=== PATIENT | male | born 1955 | race Caucasian/White ===

== ENCOUNTER 2022-11-26 07:28 | Day surgery (SDC) | payer OTHER ==
[2022-11-26 07:59] LABS: Absolute Lymphocytes (CBC) 1.7 K/uL (0.7-4.9); Hematocrit 41.9 % (39.6-49.0); Lymphocytes % 24.3 % (15.3-44.8); MCV 92.3 fL (80-100); MPV 7.6 fL (7.6-11.3); Platelets 189 thou/uL (152-406); RBC Red Blood Cell Count 4.55 M/uL (4.33-5.43)
[2022-11-26] MEDS ORDERED: Ringers Lactate 1,000 ML IV ONE (08:12)
[2022-11-26 08:22] LABS: Potassium 4.2 mEq/L (3.5-5.1)
--- NOTE | 2022-11-26 08:34 | RAD REPORT ---
EXAM DESCRIPTION: RAD - Chest Pa And Lat (2 Views) - 11/26/2022 8:06 am CLINICAL HISTORY: PREOP. Hypertension COMPARISON: No comparisons TECHNIQUE: PA and lateral views of the chest were obtained. FINDINGS: The lungs are clear. Heart size is normal and central vasculature is within normal limits. No pleural effusion or pneumothorax seen. No acute bony finding noted. IMPRESSION: No acute cardiopulmonary process.
[2022-11-26] MEDS: CEFAZOLIN SODIUM 1 GM/VIAL ONE ×2 (09:01→09:35)
[2022-11-26] MEDS ORDERED: MIDAZOLAM HCL 2 MG/2 ML INJ ONE (09:06)
[2022-11-26] MEDS ORDERED: FENTANYL CITR 100 MCG/2 ML ONE ×2 (09:06→10:42)
[2022-11-26] MEDS ORDERED: propofoL 200 MG/20 ML VIAL IV ONE (09:06)
[2022-11-26] MEDS ORDERED: ROCURONIUM 50 MG/5 ML VIAL IV ONE ×2 (09:06→10:19)
[2022-11-26] MEDS ORDERED: dexAMETHasone 10 MG/ML VIAL ONE (09:06)
[2022-11-26] MEDS ORDERED: ONDANSETRON 4 MG/2 ML VIAL ONE (09:08)
[2022-11-26] MEDS ORDERED: LIDOCAINE 2% MPF 5 ML VIAL ONE (09:08)
[2022-11-26] MEDS ORDERED: KETOROLAC 30 MG/ML INJ ONE (09:08)
[2022-11-26] MEDS ORDERED: NEOSTIGMINE 1 MG/ML -10 ML VIAL ONE (11:49)
[2022-11-26] MEDS ORDERED: GLYCOPYRROLATE 0.2 MG/ML SYR ONE (11:50)
[2022-11-26] MEDS: HYDROMORPHONE HCL 1 MG/ML INJ ONE ×2 (12:20→12:26)
--- NOTE | 2022-11-26 12:59 | EKG ---
Test Date: 2022-11-26 Test Time: 07:54:40 Care Connector: NORMA MEASUREMENT RESULTS: Intervals: Rate: 53 MI: 210 QRSD: 90 QT: 402 QTc: 377 [place]: P: 51 MI: 210 QRS: 35 T: 40 INTERPRETIVE STATEMENTS: Sinus bradycardia with 1st degree AV block Otherwise normal ECG No previous ECG available for comparison Electronically Signed On 11-26-22 12:58:30 CDT by Brad Wu
[2022-11-26] MEDS ORDERED: TAMSULOSIN 0.4 MG SR CAP ONE (13:05)
[2022-11-26] MEDS ORDERED: HYDROCODONE/APAP 5/325 MG TAB ONE (13:06)
[2022-11-26 14:19] VITALS: BP 120/83; TEMP 98; O2SAT 98
--- NOTE | 2022-12-17 10:15 | P.BOP ---
Preoperative diagnosis: bilateral tender incarcerated inguinal hernias Postoperative diagnosis: same Primary procedure: 1. Open repair of incarcerated left inguinal hernia with mesh Secondary procedure: 2. Open repair of incarcerated right inguinal hernia with mesh Estimated blood loss: <10cc Specimen: left cord lipoma Findings: sigmoid inguinal left hernia, omentum RIH Complications: None Implants: mesh sheet and plug bilateral Transferred to: Recovery Room Condition: Good
--- NOTE | 2022-12-17 21:28 | OP ---
Date of Procedure: 11/26/2022 Surgeon: Danny Salter MD Preoperative Diagnosis: Bilateral tender incarcerated inguinal hernias. Postoperative Diagnosis: Bilateral tender incarcerated inguinal hernias. Procedures: 1.Open repair of incarcerated left inguinal hernia with mesh. 2.Open repair of incarcerated right inguinal hernia with mesh. Estimated Blood Loss: Less than 10 cc. Specimen: Left cord lipoma. Findings: Sigmoid colon, the left inguinal region, the right inguinal area has omentum incarcerated. Implant: He had mesh and plug bilaterally. Indication For Procedure: This is a case of a 67-year-old patient comes to us with bilateral inguina l tender hernias, incarcerated, left side containing bowel in the form of sigmoid, right-side probabl y omentum on the previous evaluation. The benefits, alternatives, and risks of open repair of bilate ral inguinal hernias with possible mesh fully explained, which include, but not limited to infection, bleeding, damage to adjacent structures, anesthesia complication, recurrence, GA, and even . H e also understands this may require a mesh in that region. Some pros and cons of mesh placement were discussed to this patient's satisfaction. He signed a consent. Description Of Procedure: Patient was brought to the operating room, placed in supine position. Ane sthesia was done without complication. Bilateral inguinal and abdomen was prepped and draped in a st erile fashion. Lidocaine 1% plain was injected for area to be incised. First incision was done in t he left inguinal region. Incision was carried down to the fascia, which was opened under direct visi on. Once Pam fascia was opened, we identified external oblique aponeurosis that was opened in dir ection of the fibers to the superficial inguinal ring. After that, we identified the inguinal nerve, iliohypogastric nerve, dissected behind external oblique aponeurosis, put a Kelle around the sperm atic cord. We opened the hernia sac and reduced the sigmoid colon from that region. This seems to b e viable and then suture ligated. Imbricated that area and then put a mesh plug in that region, secu red in place with VersaTack and then the mesh sheet was placed in the floor of the canal securing meredith t to the pubic tubercle, shelving edge of the inguinal ligament transversalis fascia without strangul ation of the cord. The area was irrigated. Cord structures were protected at all times. We proceed ed to bring back the inguinal nerve and iliohypogastric nerve back into the inguinal canal. Reconstr ucted the superficial inguinal ring with the help of Prolene and closed the external oblique aponeuro sis without the nerve entrapment. The area was irrigated. Pam fascia closed with 3-0 chromic and the skin with volodymyr sponge count and instrument counts were correct. At that moment, we went to t he right side. Incision was made once again in the inguinal region. Incision was carried down to Sc arpa fascia until we found external oblique aponeurosis that was opened in direction of the fibers to connect to the superficial inguinal ring. The ilioinguinal nerve, iliohypogastric nerve, protected behind external oblique aponeurosis. [place] was placed around the spermatic cord. We noticed this patient to have hernia once again suture ligated. We made sure that the omentum was retracted to the abdominal cavity viable. Hernia sac was imbricated, secured in place with a plug with the VersaTack . Spermatic cord structures were protected at all times and mesh sheet was placed in the floor of th e canal securing that to the pubic tubercle, shelving edge of inguinal ligament, transversalis fascia , and the tails looped around the spermatic cord loops around the spermatic cord without strangulatio n. The ilioinguinal nerve, iliohypogastric nerve, placed back into the inguinal canal. [place] was removed. The external oblique aponeurosis was closed making sure the nerves were not included with P rolene. Subcutaneous tissue was closed with 3-0 chromic and the skin was approximated. Patient pily rated the procedure well in which case, testicles were within the scrotum. I have to mention that in the left side, we sent specimen, lipoma of the cord. ELÍAS/VIVIANE Voice ID: [id number] Report ID: [id number]
--- NOTE | 2022-12-17 21:34 | DS ---
Date of Discharge: 11/26/2022 Diagnosis: Bilateral tender incarcerated inguinal hernias. Procedure: Open repair of right and left inguinal hernia with mesh. Disposition: Home. Activity: As tolerated. No heavy lifting. Followup: Follow up in my office in 1 week. Call for appointment at [phone]. Keep area dry for 48 hours, then may shower. Cold compresses bilaterally in inguinal region HM/MODL Voice ID: [id number] Report ID: [id number]
== END 2022-11-26 14:10 | disposition home or self-care (01) ==
LOC: OR 07:28
PROVIDERS: ATTEND Surgery
PROC: 0YUA0JZ Supplement Bilateral Inguinal Region with Synthetic Substitute, Open Approach (ICD-10-PCS; principal; 2022-11-26 09:30)
DX: K40.00 Bilateral inguinal hernia, with obstruction, without gangrene, not specified as recurrent (principal); K80.20 Calculus of gallbladder without cholecystitis without obstruction; G47.33 Obstructive sleep apnea (adult) (pediatric); E66.9 Obesity, unspecified; Z68.41 Body mass index [BMI] 40.0-44.9, adult
CPT/HCPCS: 49507; 93005; 85025; 80048; 36415; 88302; 71046; J2704; J2710; J2001; J2250; J3010 ×2; J1100; J1170; J2405; J7120; J0690